=== PATIENT | female | born 1985 | race Caucasian/White ===

== ENCOUNTER 2017-04-30 11:09 | Outpatient (RCR) | payer BC | END 2017-04-30 11:53 | disposition home or self-care (01) | PROVIDERS: ATTEND Obstetrics & Gynecology | DX: O99.89 Other specified diseases and conditions complicating pregnancy, childbirth and the puerperium (principal); M54.32 Sciatica, left side; Z3A.16 16 weeks gestation of pregnancy ==

== ENCOUNTER → 2017-05-18 | Outpatient (CLI) | payer BC ==
[~2017-05-18] MED LIST: ACET1TAB43 PO; BENZ56AE2 TP; DOCU100C37 PO; IBUP-1773 PO; PREN-53 PO
--- NOTE | 2017-05-18 15:37 | Diagnostic Imaging Report ---
INDICATION: screening. TECHNIQUE: Multiple real-time grayscale images were obtained over the gravid uterus. COMPARISON: survey. FINDINGS: heart rate is 158 beats per minute. The cervix is 5.6 cm in length and appears closed. The placenta is anterior with no placenta previa. Adequate amniotic fluid appears to be present. The stomach, four-chamber view, cord insertion, three-vessel cord, urinary bladder, the kidneys, lateral ventricles and posterior fossa appear unremarkable. The spine particularly the upper aspect is not well demonstrated on this exam. Biometrical measurements are as follows: Biparietal 5.0 cm, age 21 weeks 2 days. Head circumference 18.6 cm, age 21 weeks 0 days. Abdominal circumference 17.3 cm, age 22 weeks 2 days. Femur length 3.9 cm, age 22 weeks 3 days. Sonographic estimate age: 21 weeks 6 days. Sonographic estimated date of delivery: 09/22/17. Estimated Weight: 477 gm (+/- 70 gm). LMP percentile: 65%. heart rate: 158 beats per minute. Cervical length: 5.6 cm. number: 1 of 1. IMPRESSION: Followup within two weeks is suggested to attempt better visualization of the spine. Dictated by: Dictated on workstation # [id number]
== END ==
LOC: RAD 13:06
PROVIDERS: ATTEND Obstetrics & Gynecology
DX: Z3A.21 21 weeks gestation of pregnancy; Z36 Encounter for antenatal screening of mother
CPT/HCPCS: 76805; 76817

== ENCOUNTER → 2017-06-15 | Outpatient (CLI) | payer BC ==
--- NOTE | 2017-06-15 14:32 | Diagnostic Imaging Report ---
INDICATION: Followup spine. TECHNIQUE: Multiple real-time grayscale images were obtained over the gravid uterus. COMPARISON: 05/18/2017. FINDINGS: The heart rate is 140 beats per minutes. The placenta is anterior. No placenta previa. Adequate amniotic fluid is seen. The spine is not well seen due to position. IMPRESSION: The spine is still not well seen. Another followup attempting to see the spine could be considered. Dictated by: Dictated on workstation # [id number]
== END ==
LOC: RAD 13:12
PROVIDERS: ATTEND Obstetrics & Gynecology
DX: Z36 Encounter for antenatal screening of mother (principal); Z3A.00 Weeks of gestation of pregnancy not specified
CPT/HCPCS: 76816

== ENCOUNTER → 2021-01-07 | Outpatient (CLI) | payer BC, OTHER ==
[~2021-01-07] MED LIST changes: +CATHETER FLUSH 10 ML SYR IV PRN
--- NOTE | 2021-01-07 11:35 | Diagnostic Imaging Report ---
INDICATION: Abdominal pain and bloating. Patient was administered 5.5 mCi technetium 99m Choletec intravenously and imaging over the abdomen was performed. After 60 minutes patient ingested one can of Ensure, a gallbladder ejection fraction was calculated. There is homogeneous uptake of activity by the liver. There is prompt excretion of activity into the common duct and gallbladder with normal passage of activity into the small bowel. Gallbladder ejection fraction is normal at 51%. IMPRESSION: Normal HIDA scan and gallbladder ejection fraction. Dictated by: Dictated on workstation # [id number]
== END ==
LOC: CARD 10:00
PROVIDERS: ATTEND Family Medicine
DX: R10.9 Unspecified abdominal pain (principal); R14.0 Abdominal distension (gaseous)
CPT/HCPCS: 78227; A9537

== ENCOUNTER → 2021-05-08 | Outpatient (CLI) | payer OTHER ==
[~2021-05-08] MED LIST changes: -CATHETER FLUSH 10 ML SYR IV PRN
--- NOTE | 2021-05-08 12:41 | Diagnostic Imaging Report ---
PROCEDURE: Pelvic comp/transvaginal sonogram. TECHNIQUE: Complete transabdominal and transvaginal pelvic ultrasound was performed. In addition, limited pelvic Doppler was performed. INDICATION: Pelvic pain. FINDINGS: The uterus is anteverted measuring 9.3 x 4.7 x 5.5 cm. The endometrium is 10 mm in thickness. No myometrial mass is identified. The right ovary measures 3.6 x 1.4 x 2.8 cm and the left ovary measures 5.2 x 2.7 x 2.4 cm. The left ovary does contain a simple cyst measuring approximately 2 cm in size. There is also a probable hemorrhagic cyst on the left ovary measuring 3.2 x 2.3 x 2.4 cm in size. There is vascularity to both ovaries. There is trace free fluid adjacent to the left ovary. IMPRESSION: There is a 2 cm simple left ovarian cyst as well as a 3.2 cm hemorrhagic left ovarian cyst. The study is otherwise unremarkable. Dictated by: Dictated on workstation # [id number]
== END ==
LOC: RAD 10:00
PROVIDERS: ATTEND Obstetrics & Gynecology
DX: N83.202 Unspecified ovarian cyst, left side (principal)
CPT/HCPCS: 76830; 76856

== ENCOUNTER → 2021-05-28 | Outpatient (CLI) | payer OTHER | END | disposition home or self-care (01) | LOC: PREOP 05:37 | PROVIDERS: ATTEND Surgery | DX: Z01.818 Encounter for other preprocedural examination (principal) ==

== ENCOUNTER 2021-06-27 08:27 | Outpatient (RCR) | payer OTHER | END 2021-08-13 08:38 | disposition home or self-care (01) | PROVIDERS: ATTEND Obstetrics & Gynecology | DX: N39.3 Stress incontinence (female) (male) (principal); R10.2 Pelvic and perineal pain; N81.10 Cystocele, unspecified; N81.6 Rectocele ==